=== PATIENT | male | born 1955 | race Caucasian/White ===

== ENCOUNTER 2023-11-07 19:24 | Emergency (ER) | payer OTHER, SELFPAY ==
[2023-11-07] VITALS (24 sets, daily range): BP systolic 138–179; BP diastolic 72–86; PULSE 63–90; RESP 12–62; TEMP 37.2; O2SAT 88–97; BMI 31.2
[2023-11-07 20:09] LABS: Adenovirus NOT DETECTED (NOT DETECTE); Bordetella parapertussis NOT DETECTED (NOT DETECTE); Coronavirus 229E NOT DETECTED (NOT DETECTE); Coronavirus HKU1 NOT DETECTED (NOT DETECTE); Coronavirus NL63 NOT DETECTED (NOT DETECTE); Coronavirus OC43 NOT DETECTED (NOT DETECTE); Human Metapneumovirus NOT DETECTED (NOT DETECTE); Human Rhinovirus/Enterovirus NOT DETECTED (NOT DETECTE); Influenza A NOT DETECTED (NOT DETECTE); Influenza B NOT DETECTED (NOT DETECTE); Mycoplasma pneumoniae NOT DETECTED (NOT DETECTE); Parainfluenza Virus 1 NOT DETECTED (NOT DETECTE); Parainfluenza Virus 2 NOT DETECTED (NOT DETECTE); Parainfluenza Virus 3 NOT DETECTED (NOT DETECTE); Parainfluenza Virus 4 NOT DETECTED (NOT DETECTE); Respiratory Syncytial Virus NOT DETECTED (NOT DETECTE); SARS-CoV-2 NOT DETECTED (NOT DETECTE)
--- NOTE | 2023-11-07 20:23 | XR_ITS ---
[address] [address] Patient Name: VLADISLAV SEPULVEDA MRN: [id number] date: 1955 Sex: M Assigned Patient Location: ER Current Patient Location: ER Accession/Order Number: [id number] Exam Date: 11/07/2023 20:25 Report Date: 11/07/2023 20:49 At the request of: JOSEPH MEDINA Procedure: XR chest 2V EXAM: XR chest 2V HISTORY: Cough portable chest 07/27/2022 COMPARISON: None. TECHNIQUE: PA and lateral chest x-ray FINDINGS: IMPRESSION: Patchy infiltrate within the posterior aspect of the presumed right lower lobe. This is best visualized on the lateral view. No pneumothorax or pleural effusion. The heart is not enlarged. No visualized acute osseous abnormality Electronically authenticated by: JIMMIE CONCEPCION Date: 11/07/2023 20:49
--- NOTE | 2023-11-07 20:28 | ED_ITS ---
HPI - General Adult General Chief complaint: Shortness of Breath/Dyspnea Stated complaint: UPPER RESP Time Seen by Provider: 11/07/23 20:18 Source: patient Mode of arrival: walk-in Limitations: no limitations History of Present Illness HPI narrative: 60-year-old male to the emergency for a chief complaint shortness of breath. Patient reports that he has cough, nasal congestion for the last seven days. He reports he does not sleep in three nights due to coughing and shortness of breath. He has been using albuterol at home every 2-4 hours which improves his symptoms significantly. Cough is productive of some white sputum. dENIES ANY FEVER, SWEATS, CHILLS. dENIES ANY CHEST PAIN. dENIES ANY LEG SWELLING. He reports a [id number] history of smoking. Related Data Previous Rx's Medication Instructions Recorded albuterol sulfate 90 mcg/actuation 2 inh inhalation Q4H PRN shortness 11/07/23 aerosol inhaler of breath or wheezing #6.7 grams amoxicillin 875 mg-potassium 1 tab PO Q12H #14 tabs 11/07/23 clavulanate 125 mg tablet doxycycline monohydrate 100 mg 100 mg PO BID 7 days #14 caps 11/07/23 capsule prednisone 20 mg tablet 60 mg (3 x 20 mg) PO DAILY 5 days 11/07/23 #15 tabs Allergies Allergy/AdvReac Type Severity Reaction Status Date / Time naproxen [From Naprosyn] Allergy Intermediate Verified 11/07/23 19:32 Review of Systems ROS Status of ROS 10 or more systems reviewed and unremark able except as noted in history and below Exam Narrative Exam Narrative: VITALS: I have reviewed the triage vital signs.? GENERAL: Well developed, well appearing adult in no acute distress.?? NEURO: Alert and oriented. Moves all extremities. Face is symmetric and expressive.? EYES: PERRL. No scleral icterus or conjunctival injection. No discharge.? HENT: Normocephalic, atraumatic. Hearing is grossly intact. Nares grossly patent and without discharge. Mucous membranes moist.? NECK: No JVD. Patient moves neck without restriction.? CARDIO: Rhythm regular. Normal rate. No murmur, rub, or gallop. Pulses equal bilaterally in the upper and lower extremity. No lower extremity edema.? PULM: Lungs clear to auscultation in all thomas. No wheezes, rales, or rhonchi. No conversational dyspnea. No splinting, stridor, or accessory muscle use.?? GI/: Abdomen is soft and non-tender. Normoactive bowel sounds.? EXTREMITIES: Symmetric muscle bulk. No joint swelling. No clubbing, cyanosis, or deformity.? SKIN: Warm and dry. Normal turgor. No rash or lesions appreciated.? PSYCH: Mood, affect, and interaction is appropriate to the setting. Constitutional Vital Signs, click to edit/add: Last Vital Signs Temp 98.9 F 11/07/23 19:27 Pulse 81 11/07/23 23:30 Resp 20 11/07/23 22:20 BP 157/84 H 11/07/23 23:31 Pulse Ox 95 11/07/23 23:30 O2 Del Method Room Air 11/07/23 19:27 Course Vital Signs Vital signs: Vital Signs Temperature 98.9 F 11/07/23 19:27 Pulse Rate 90 11/07/23 19:27 Respiratory Rate 24 11/07/23 19:27 Blood Pressure 164/79 H 11/07/23 19:27 Pulse Oximetry 94 L 11/07/23 19:27 Oxygen Delivery Method Room Air 11/07/23 19:27 Temperature 98.9 F 11/07/23 19:27 Pulse Rate 81 11/07/23 23:30 Respiratory Rate 20 11/07/23 22:20 Blood Pressure 157/84 H 11/07/23 23:31 Pulse Oximetry 95 11/07/23 23:30 Oxygen Delivery Method Room Air 11/07/23 19:27 Medical Decision Making [facility] Narrative Medical decision making narrative: 60-year-old male to the emergency Department chief complaint shortness of breath. Vital stable, patient is afebrile. Rhonchi that clear with coughing. No increased work of breathing. He reports a history of chronic obstructive pulmonary disease. Basic labs are ordered. We'll obtain chest x-ray. DuoNeb and steroids ordered. Patient agrees this plan. CXR shows Infiltrate with clinically correlates with pneumonia. Laboratory reviewed and noted. He does have an elevated troponin level. I do see he has had this in the past. Repeat troponin was obtained and decreased slightly. He has no active chest discomfort or ACS equivalent symptoms. His prior shortness of breath resolved with DuoNeb treatment. EKG without evidence of ischemia. I discussed findings with the patient. Given his elevated troponin level I did recommend admission. Patient reports that he has a truck that he needs to return tomorrow morning will be charged for her dollars if he does not do so. He would like to leave against medical advice. I again discussed the risks including , disability, , etc. with the patient he would still like to leave. He is given a prescription for antibiotics given his likely chronic obstructive pulmonary disease was covered with Augmentin and doxycycline. He is given albuterol. He was given a steroid. Return precautions. He was instructed to return as soon as feasible to continue his care. He was given outpatient follow- up as well. Patient Left against medical advice. Medical Records Medical records reviewed: Yes I reviewed the patient's medical records Lab Data Lab results reviewed: Yes I reviewed the patient's lab results Labs: Lab Results 11/07/23 11/07/23 11/07/23 Range/Units 19:50 20:36 22:06 WBC 12.5 H (4.0-11.0) 10^3/uL RBC 3.90 L (4.70-6.10) 10^6/uL Hgb 12.0 L (14.0-18.0) g/dL Hct 36.6 L (42.0-54.0) % MCV 93.8 (80.0-94.0) fL MCH 30.8 (25.9-34.0) pg MCHC 32.8 (29.9-35.2) g/dL RDW 14.1 (11.0-15.0) % Plt Count 339 (150-450) 10^3/uL MPV 10.5 (9.5-13.5) fL Neut % (Auto) 65.0 (43.0-75.0) % Lymph % (Auto) 22.1 (20.5-60.0) % [place] % (Auto) 9.8 (1.7-12.0) % Eos % (Auto) 1.8 (0.9-7.0) % Baso % (Auto) 0.7 (0.2-2.0) % Neut # (Auto) 8.1 H (1.4-6.5) 10^3/uL Lymph # (Auto) 2.8 (1.2-3.8) 10^3/uL [place] # (Auto) 1.2 H (0.3-0.8) 10^3/uL Eos # (Auto) 0.2 (0.0-0.7) 10^3/uL Baso # (Auto) 0.1 (0.0-0.1) 10^3/uL Abs Immat Gran (auto) 0.07 H (0.00-0.03) 10^3/uL Imm/Tot Granulo (auto) 0.6 H (0.0-0.5) % Sodium 138 (136-145) mmol/L Potassium 3.9 (3.5-5.1) mmol/L Chloride 104 (98-107) mmol/L Carbon Dioxide 27.7 (21.0-32.0) mmol/L Anion Gap 10.2 BUN 17.0 (7.0-18.0) mg/dL Creatinine 1.12 (0.70-1.30) mg/dL Est GFR ( Amer) >60 (>=60) Est GFR (Non-Af Amer) >60 (>=60) BUN/Creatinine Ratio 15.2 Glucose 146 H (74-106) mg/dL Calcium 9.5 (8.5-10.1) mg/dL Troponin I High Sens 160.1 H* 152.2 H* (4.0-76.1) pg/mL NT-Pro-B Natriuret Pep 504.0 (<=900.0) pg/mL Adenovirus (PCR) Not detected (NOT DETECTE) C. pneumoniae DNA (PCR) Not detected (NOT DETECTE) Coronavirus Type OC43 Not detected (NOT DETECTE) Coronavirus Type HKU1 Not detected (NOT DETECTE) Coronavirus Type 229E Not detected (NOT DETECTE) Coronavirus Type NL63 Not detected (NOT DETECTE) Human Metapneumovir PCR Not detected (NOT DETECTE) M. pneumoniae (PCR) Not detected (NOT DETECTE) Parainfluenza PCR Not detected (NOT DETECTE) Parainfluenza 2 (PCR) Not detected (NOT DETECTE) Parainfluenza 3 (PCR) Not detected (NOT DETECTE) Parainfluenza 4 (PCR) Not detected (NOT DETECTE) RSV (RT-PCR) Not detected (NOT DETECTE) Entero/Rhino (PCR) Not detected (NOT DETECTE) SARS-CoV-2 (PCR) Not detected (NOT DETECTE) Bordetella pertussis (PCR) Not detected (NOT DETECTE) B parapertussis DNA PCR Not detected (NOT DETECTE) Influenza Type A (PCR) Not detected (NOT DETECTE) Influenza Type B (PCR) Not detected (NOT DETECTE) ECG Data Attestation: I personally reviewed and interpreted this ECG as follows: (Sinus rhythm. No ischemic pattern. Normal QTC.) Discharge Plan Discharge Chief Complaint: Shortness of Breath/Dyspnea Clinical Impression: Community acquired pneumonia, Elevated troponin Patient Disposition: Left Against Medical Advice Time of Disposition Decision: 23:09 Condition: Fair Mode of Transportation: Private Vehicle Prescriptions / Home Meds: New prednisone 20 mg tablet 60 mg PO DAILY 5 Days Qty: 15 0RF doxycycline monohydrate 100 mg capsule 100 mg PO BID 7 Days Qty: 14 0RF amoxicillin-pot clavulanate 875-125 mg tablet 1 tab PO Q12H Qty: 14 0RF albuterol sulfate 90 mcg/actuation HFA aerosol inhaler 2 inh inhalation Q4H PRN (Reason: shortness of breath or wheezing) Qty: 6.7 0RF Print Language: Emirati Instructions: Community Acquired Pneumonia (ED) Additional Instructions: He may return to [facility] at any time to continue your care. You need evaluation for her elevated troponin levels with cardiology. Return to the emergency department as soon as possible to continue your care. Stand Alone Forms: Portal Instructions Referrals: Trent Brandt MD [Primary Care Provider] - 1 week Ziyad Tripp MD [Physician] - As soon as possible
--- NOTE | 2023-11-07 20:33 | ECG_ITS ---
The [facility] Test Date: 2023-11-07 Pat Name: VLADISLAV SEPULVEDA Department: Room: - Gender: Male Site Leader: : 1955 Requested By: MERCY AMBRIZ Order Number: [id number] Reading MD: MERCY AMBRIZ Measurements Intervals [place] Rate: 85 P: 60 [place]: 150 QRS: -17 QRSD: 86 T: 90 QT: 356 QTc: 399 Interpretive Statements 1100 Sinus rhythm 1470 with occasional supraventricular premature complexes 83354 Cannot rule out inferior myocardial infarction with posterior extension, probably old 8101 Low QRS voltage in limb leads 9150 abnormal ECG No previous ECG available for comparison Electronically Signed On 11-08-2023 5:34:13 EST by MERCY AMBRIZ
[2023-11-07 20:43] LABS: Basophils Absolute Auto 0.1 10^3/uL (0.0-0.1); Basophils Percent Auto 0.7 % (0.2-2.0); Eosinophils Absolute Auto 0.2 10^3/uL (0.0-0.7); Eosinophils Percent Auto 1.8 % (0.9-7.0); Hematocrit 36.6 % (42.0-54.0); Immature Granulocytes Abs Auto 0.07 10^3/uL (0.00-0.03); Immature Granulocytes Pct Auto 0.6 % (0.0-0.5); Lymphocytes Absolute Auto 2.8 10^3/uL (1.2-3.8); Lymphocytes Percent Auto 22.1 % (20.5-60.0); Mean Corpuscular HGB Conc 32.8 g/dL (29.9-35.2); Mean Corpuscular Hemoglobin 30.8 pg (25.9-34.0); Mean Corpuscular Volume 93.8 fL (80.0-94.0); Mean Platelet Volume 10.5 fL (9.5-13.5); Monocytes Absolute Auto 1.2 10^3/uL (0.3-0.8); Monocytes Percent Auto 9.8 % (1.7-12.0); Neutrophils Absolute Auto 8.1 10^3/uL (1.4-6.5); Platelet Count 339 10^3/uL (150-450); Red Cell Distribution Width 14.1 % (11.0-15.0); White Blood Count 12.5 10^3/uL (4.0-11.0)
[2023-11-07] MEDS: METHYLPREDNISOLONE SOD SUCC PF 125 MG/2 ML VIAL IVP (20:50)
[2023-11-07 21:06] LABS: Anion Gap 10.2; BUN Creatinine Ratio 15.2; Calcium 9.5 mg/dL (8.5-10.1); Carbon Dioxide 27.7 mmol/L (21.0-32.0); Chloride 104 mmol/L (98-107); Estimated GFR (African America >60 (>=60); Estimated GFR (Non-African Ame >60 (>=60); Glucose 146 mg/dL (74-106); Potassium 3.9 mmol/L (3.5-5.1); Sodium 138 mmol/L (136-145)
[2023-11-07 21:08] LABS: Troponin I High Sensitivity 160.1 pg/mL (4.0-76.1)
[2023-11-07] MEDS: IPRATROPIUM/ALBUTEROL SULFATE 3 ML AMPUL.NEB IH (21:15)
[2023-11-07 22:32] LABS: Troponin I High Sensitivity 152.2 pg/mL (4.0-76.1)
[2023-11-07] MEDS: CEFTRIAXONE 1,000 MG in 0.9 % SODIUM CHLORIDE 50 ML 100 MG IV (23:35)
[2023-11-07] MEDS: AZITHROMYCIN 500 MG in 0.9 % SODIUM CHLORIDE 250 ML 250 MG IV (23:36)
== END 2023-11-08 01:13 | disposition left against medical advice (07) ==
PROVIDERS: Emergency Provider Student in an Organized Health Care Education/Training Program; PCP Family Medicine
DX: J18.9 Pneumonia, unspecified organism (principal); R79.89 Other specified abnormal findings of blood chemistry; J44.0 Chronic obstructive pulmonary disease with (acute) lower respiratory infection; F17.210 Nicotine dependence, cigarettes, uncomplicated; Z20.822 Contact with and (suspected) exposure to COVID-19; Z53.29 Procedure and treatment not carried out because of patient's decision for other reasons
CPT/HCPCS: 0202U; 36415; 71046; 80048; 83880; 84484; 85025; 93005; 94640; 96365; 96368; 96375; 99285; J0456; J2930

== ENCOUNTER 2024-01-19 15:03 | Emergency (ER) | payer OTHER, SELFPAY ==
[2024-01-19 15:09] VITALS: BP 142/84; PULSE 64; RESP 20; TEMP 36.8; O2SAT 97; BMI 31.2
--- NOTE | 2024-01-19 15:26 | XR_ITS ---
The [address] [address] Patient Name: VLADISLAV SEPULVEDA MRN: [id number] date: 1955 Sex: M Assigned Patient Location: ER Current Patient Location: ER Accession/Order Number: [id number] Exam Date: 01/19/2024 16:10 Report Date: 01/19/2024 17:07 At the request of: ANA GARCIA Procedure: XR hip LT 2V w/ pelvis EXAM: XR hip LT 2V w/ pelvis HISTORY: Fall COMPARISON: None. TECHNIQUE: 3 views of the left hip FINDINGS: No acute fracture is seen. Joint alignment is normal. Joint spaces are preserved. XR/XR hip LT 2V w/ pelvis IMPRESSION: No acute fracture or malalignment. Electronically authenticated by: MARCK DAHL Date: 01/19/2024 17:07
--- NOTE | 2024-01-19 15:26 | XR_ITS ---
The [address] [address] Patient Name: VLADISLAV SEPULVEDA MRN: [id number] date: 1955 Sex: M Assigned Patient Location: ER Current Patient Location: Accession/Order Number: [id number] Exam Date: 01/19/2024 16:10 Report Date: 01/19/2024 17:08 At the request of: ANA GARCIA Procedure: XR hand LT min 3V CLINICAL HISTORY: Fall.Fell off the truck 3 days ago, pain. EXAMINATION: Left hand: 01/19/2024. COMPARISON: None. FINDINGS: 3 views are provided which demonstrate there is narrowing of the radiocarpal, carpocarpal, carpometacarpal joint particularly the first digit, metacarpophalangeal joints, as well as interphalangeal joints with some calcifications along the cartilage between the radiocarpal joint, as well as along the base of the proximal phalanx of third digit. No erosive changes are seen. No definite fractures or dislocations are seen. No significant soft tissue swelling, calcifications or radiopaque foreign bodies. XR/XR hand LT min 3V IMPRESSION: 1. No acute fractures or dislocations. 2. Degenerative changes as described above. Electronically authenticated by: ROCK [place] Date: 01/19/2024 17:08
--- NOTE | 2024-01-19 15:26 | XR_ITS ---
The [address] [address] Patient Name: VLADISLAV SEPULVEDA MRN: [id number] date: 1955 Sex: M Assigned Patient Location: ER Current Patient Location: Accession/Order Number: [id number] Exam Date: 01/19/2024 16:10 Report Date: 01/19/2024 17:08 At the request of: ANA GARCIA Procedure: XR chest 2V CLINICAL HISTORY: Cough. Fell off a truck 3 days ago. EXAMINATION: PA and lateral chest: 01/19/2024. COMPARISON: PA and lateral chest 11/07/2024. FINDINGS: There are degenerative changes of thoracic spine of moderate degree as well as there are degenerative changes of the left shoulder joint. The visualized soft tissues appear intact. The heart size seems normal. The aorta structures, atherosclerotic. The trachea is midline. There are no discrete infiltrates, pleural effusions, pulmonary edema or pneumothorax. XR/XR chest 2V IMPRESSION: No acute cardiopulmonary disease. Electronically authenticated by: [place] Date: 01/19/2024 17:08
--- NOTE | 2024-01-19 15:26 | XR_ITS ---
The [address] [address] Patient Name: VLADISLAV SEPULVEDA MRN: [id number] date: 1955 Sex: M Assigned Patient Location: ER Current Patient Location: ER Accession/Order Number: [id number] Exam Date: 01/19/2024 16:10 Report Date: 01/19/2024 17:10 At the request of: ANA GARCIA Procedure: XR shoulder RT min 2V CLINICAL HISTORY: Fall. Fell off a truck 3 days ago. EXAMINATION: Right shoulder: 01/19/2024. COMPARISON: None. FINDINGS: Three views are provided which demonstrate normally aligned glenohumeral joint without definite fractures or dislocations. There is some narrowing of the AC joint. The visualized right clavicle, scapula, visualized right ribs appear intact. Surrounding soft tissues are normal. There are no abnormal calcifications or radiopaque foreign bodies. XR/XR shoulder RT min 2V IMPRESSION: No acute fractures or dislocations or significant degenerative changes. Electronically authenticated by: [place] Date: 01/19/2024 17:10
--- NOTE | 2024-01-19 15:29 | ED.GENADUL1 ---
Documented by User: MAEVE Escamilla 01/19/24 18:25 HPI - General Adult General Chief complaint: Fall Stated complaint: FALL Time Seen by Provider: 01/19/24 15:13 Source: patient Mode of arrival: walk-in Limitations: no limitations History of Present Illness HPI narrative: Patient is a 68-year-old male who presents to the emergency department for the evaluation of multiple complaints. He states 1 week ago he fell backward out of the lift of a truck bed. He states he fell while moving. He is on aspirin and Plavix. He states he does not know if he hit his head or got knocked out. He complains of persistent pain to the right posterior shoulder, left hip, left hand. He ambulated into the emergency department. He has not been seen by any providers since falling. He states today they came to the ER because they have finished moving. Patient further complains of persistent cough over the last 2 months. He was seen in this emergency department in October and diagnosed with community-acquired pneumonia, COPD exacerbation and elevated troponin. He signed out AGAINST MEDICAL ADVICE because he stated he could not stay in the hospital. He states at my time of initial interview, he is able to stay in the hospital if we need him to. He continues to have a cough worse at nighttime. He does not wear home oxygen. He has had no new fevers. He states the cough is painful but he has not had any persistent chest pain. He finished steroids and antibiotics several weeks ago and feels he has not had any improvement. Related Data Home Medications Medication Instructions Recorded Confirmed clopidogrel 75 mg tablet 75 mg PO DAILY 01/19/24 01/19/24 Previous Rx's Medication Instructions Recorded albuterol sulfate 90 mcg/actuation 2 inh inhalation Q4H PRN shortness 11/07/23 aerosol inhaler of breath or wheezing #6.7 grams amoxicillin 875 mg-potassium 1 tab PO Q12H #14 tabs 11/07/23 clavulanate 125 mg tablet doxycycline monohydrate 100 mg 100 mg PO BID 7 days #14 caps 11/07/23 capsule prednisone 20 mg tablet 60 mg (3 x 20 mg) PO DAILY 5 days 11/07/23 #15 tabs ketoconazole 2 % topical cream 1 applic topical BID #30 grams 01/19/24 methocarbamol 750 mg tablet 750 mg PO TID PRN pain #20 tabs 01/19/24 pseudoephedrine 60 mg-DM 15 1 tab PO Q6H PRN cough #20 tabs 01/19/24 mg-guaifenesin 400 mg tablet (Capmist DM) Allergies Allergy/AdvReac Type Severity Reaction Status Date / Time naproxen [From Naprosyn] Allergy Intermediate Verified 11/07/23 19:32 Review of Systems ROS Constitutional Denies: fever or chills Ears, nose, mouth, and throat Denies: throat pain or nasal congestion Cardiovascular Denies: chest pain Respiratory Reports: shortness of breath and cough Gastrointestinal Denies: nausea or vomiting Musculoskeletal Reports: back pain and extremity pain; Denies: neck pain Integumentary/Breast Denies: rash Neurological Denies: headache Hematologic/Lymphatic Denies: easy bruising or easy bleeding PFSH PFS Social History Smoking status: Heavy tobacco smoker Exam Narrative Exam Narrative: Gen.: Awake, alert, in no distress Head: Normocephalic, atraumatic ENT: Moist mucous membranes; No bony tenderness of the C-spine Respiratory: No respiratory distress, lungs clear bilaterally Cardio: Regular rate and rhythm Back: No bony tenderness of the T-spine or L-spine in the midline. No abrasions or lacerations noted of the posterior Chest or low back Extremities: Moves extremities equally, no injuries noted; Tenderness over the first metacarpal of the left hand, no obvious deformity noted. Diffuse tenderness of the left lateral hip with no internal or external rotation. Diffuse posterior tenderness of the right shoulder. No obvious deformity or evidence of dislocation Psych: Normal mood and affect Neuro: No focal neuro deficit Skin: Warm, dry, intact Constitutional Vital Signs, click to edit/add: Last Vital Signs Temp 98.2 F 01/19/24 15:09 Pulse 67 01/19/24 18:30 Resp 16 01/19/24 18:30 BP 150/93 H 01/19/24 18:30 Pulse Ox 96 01/19/24 18:30 O2 Del Method Room Air 01/19/24 18:30 Course Vital Signs Vital signs: Vital Signs Temperature 98.2 F 01/19/24 15:09 Pulse Rate 64 01/19/24 15:09 Respiratory Rate 20 01/19/24 15:09 Blood Pressure 142/84 H 01/19/24 15:09 Pulse Oximetry 97 01/19/24 15:09 Oxygen Delivery Method Room Air 01/19/24 15:09 Temperature 98.2 F 01/19/24 15:09 Pulse Rate 67 01/19/24 18:30 Respiratory Rate 16 01/19/24 18:30 Blood Pressure 150/93 H 01/19/24 18:30 Pulse Oximetry 96 01/19/24 18:30 Oxygen Delivery Method Room Air 01/19/24 18:30 Medical Decision Making MDM Narrative Medical decision making narrative: Patient with no EKG changes in the ER, he has a chronically elevated troponin which is elevated today although repeat troponin has decreased slightly, he has no active severe chest pain in the ER. He complains of continued cough at nighttime for over 2 months. Chest x-ray is normal. Patient has unremarkable CT of the brain, C-spine as well as x-rays of the left hand, right shoulder, chest, pelvis and left hip. I discussed the case with Dr. Brandt, he recommended if the BNP is normal, the patient can be discharged and follow-up in the office. This lab value was normal and the patient maintained stable vital signs in the ER. He is discharged home with a cough medication and muscle relaxant to follow-up with Dr. Brandt's office. Return to the ER if symptoms change or worsen Patient was reevaluated by Dr. Ballard prior to discharge. Patient was found to have skin rash consistent with ringworm on multiple parts of his body. Ketoconazole given for home for ringworm as well. Medical Records Medical records reviewed: Yes I reviewed the patient's medical records Lab Data Lab results reviewed: Yes I reviewed the patient's lab results Labs: Lab Results 01/19/24 01/19/24 Range/Units 15:35 16:35 WBC 10.4 (4.0-11.0) 10^3/uL RBC 4.29 L (4.70-6.10) 10^6/uL Hgb 13.0 L (14.0-18.0) g/dL Hct 40.0 L (42.0-54.0) % MCV 93.2 (80.0-94.0) fL MCH 30.3 (25.9-34.0) pg MCHC 32.5 (29.9-35.2) g/dL RDW 16.4 H (11.0-15.0) % Plt Count 306 (150-450) 10^3/uL MPV 10.5 (9.5-13.5) fL Neut % (Auto) 68.5 (43.0-75.0) % Lymph % (Auto) 20.6 (20.5-60.0) % Roosevelt % (Auto) 7.6 (1.7-12.0) % Eos % (Auto) 2.2 (0.9-7.0) % Baso % (Auto) 0.8 (0.2-2.0) % Neut # (Auto) 7.1 H (1.4-6.5) 10^3/uL Lymph # (Auto) 2.1 (1.2-3.8) 10^3/uL Roosevelt # (Auto) 0.8 (0.3-0.8) 10^3/uL Eos # (Auto) 0.2 (0.0-0.7) 10^3/uL Baso # (Auto) 0.1 (0.0-0.1) 10^3/uL Abs Immat Gran (auto) 0.03 (0.00-0.03) 10^3/uL Imm/Tot Granulo (auto) 0.3 (0.0-0.5) % Sodium 142 (136-145) mmol/L Potassium 3.8 (3.5-5.1) mmol/L Chloride 104 (98-107) mmol/L Carbon Dioxide 27.5 (21.0-32.0) mmol/L Anion Gap 14.3 BUN 16.0 (7.0-18.0) mg/dL Creatinine 1.33 H (0.70-1.30) mg/dL Est GFR ( Amer) >60 (>=60) Est GFR (Non-Af Amer) 53 L (>=60) BUN/Creatinine Ratio 12.0 Glucose 217 H (74-106) mg/dL Calcium 10.2 H (8.5-10.1) mg/dL Total Bilirubin 0.8 (0.2-1.0) mg/dL AST 21 (15-37) U/L ALT 27 (16-63) U/L Alkaline Phosphatase 94 (46-116) U/L Troponin I High Sens 225.2 H* 224.0 H* (4.0-76.1) pg/mL NT-Pro-B Natriuret Pep 247.0 (<=900.0) pg/mL Total Protein 7.7 (6.4-8.2) g/dL Albumin 3.5 (3.4-5.0) g/dL Globulin 4.2 g/dL Albumin/Globulin Ratio 0.[address] scan - head: Attestation: I have reviewed the pertinent imaging results. Radiologist's impression: ITS Impressions Chest X-Ray 01/19/24 15:26 IMPRESSION: No acute cardiopulmonary disease. Electronically authenticated by: [place] Date: 01/19/2024 17:08 Hand X-Ray 01/19/24 15:26 IMPRESSION: 1. No acute fractures or dislocations. 2. Degenerative changes as described above. Electronically authenticated by: [place] Date: 01/19/2024 17:08 Hip/Pelvis X-Ray 01/19/24 15:26 IMPRESSION: No acute fracture or malalignment. Electronically authenticated by: MARCK DAHL Date: 01/19/2024 17:07 Shoulder X-Ray 01/19/24 15:26 IMPRESSION: No acute fractures or dislocations or significant degenerative changes. Electronically authenticated by: [place] Date: 01/19/2024 17:[address] 01/19/24 16:40 IMPRESSION: No acute intracranial process is identified. No acute fracture. Frontal thickening likely due to prior subgaleal hemorrhage. Electronically authenticated by: DENISE MENSAH Date: 01/19/2024 17:[address] 01/19/24 16:40 IMPRESSION: No acute intracranial process is identified. No acute fracture. Frontal thickening likely due to prior subgaleal hemorrhage. Electronically authenticated by: DENISE MENSAH Date: 01/19/2024 17:14 Discharge Plan Discharge Chief Complaint: Fall Clinical Impression: Cough, Contusion of multiple sites, Fall, Ringworm Patient Disposition: Home, Self-Care Time of Disposition Decision: 18:19 Condition: Good Prescriptions / Home Meds: New methocarbamol 750 mg tablet 750 mg PO TID PRN (Reason: pain) Qty: 20 0RF Capmist DM 60-15-400 mg tablet 1 tab PO Q6H PRN (Reason: cough) Qty: 20 0RF ketoconazole 2 % cream 1 applic topical BID Qty: 30 0RF No Action prednisone 20 mg tablet 60 mg PO DAILY 5 Days Qty: 15 0RF doxycycline monohydrate 100 mg capsule 100 mg PO BID 7 Days Qty: 14 0RF amoxicillin-pot clavulanate 875-125 mg tablet 1 tab PO Q12H Qty: 14 0RF albuterol sulfate 90 mcg/actuation HFA aerosol inhaler 2 inh inhalation Q4H PRN (Reason: shortness of breath or wheezing) Qty: 6.7 0RF clopidogrel 75 mg tablet 75 mg PO DAILY Instructions: Fall Prevention (ED), Acute Cough (ED) Additional Instructions: Call Dr. Brandt's office tomorrow for appointment Stand Alone Forms: Portal Instructions Referrals: Trent Brandt MD [Primary Care Provider] - 1 week Discharge Date/Time: 01/19/24 18:40 Documented by User: Cristian Ballard MD 01/19/24 20:43 HPI - General Adult General Chief complaint: Fall Stated complaint: FALL Time Seen by Provider: 01/19/24 15:13 Related Data Home Medications Medication Instructions Recorded Confirmed clopidogrel 75 mg tablet 75 mg PO DAILY 01/19/24 01/19/24 Previous Rx's Medication Instructions Recorded albuterol sulfate 90 mcg/actuation 2 inh inhalation Q4H PRN shortness 11/07/23 aerosol inhaler of breath or wheezing #6.7 grams amoxicillin 875 mg-potassium 1 tab PO Q12H #14 tabs 11/07/23 clavulanate 125 mg tablet doxycycline monohydrate 100 mg 100 mg PO BID 7 days #14 caps 11/07/23 capsule prednisone 20 mg tablet 60 mg (3 x 20 mg) PO DAILY 5 days 11/07/23 #15 tabs ketoconazole 2 % topical cream 1 applic topical BID #30 grams 02/28/24 methocarbamol 750 mg tablet 750 mg PO TID PRN pain #20 tabs 01/19/24 pseudoephedrine 60 mg-DM 15 1 tab PO Q6H PRN cough #20 tabs 01/19/24 mg-guaifenesin 400 mg tablet (Capmist DM) Allergies Allergy/AdvReac Type Severity Reaction Status Date / Time naproxen [From Naprosyn] Allergy Intermediate Verified 11/07/23 19:32 PFSH PFSH Social History Smoking status: Heavy tobacco smoker Exam Constitutional Vital Signs, click to edit/add: Last Vital Signs Temp 98.2 F 01/19/24 15:09 Pulse 67 01/19/24 18:30 Resp 16 01/19/24 18:30 BP 150/93 H 01/19/24 18:30 Pulse Ox 96 01/19/24 18:30 O2 Del Method Room Air 01/19/24 18:30 Course Vital Signs Vital signs: Vital Signs Temperature 98.2 F 01/19/24 15:09 Pulse Rate 64 01/19/24 15:09 Respiratory Rate 20 01/19/24 15:09 Blood Pressure 142/84 H 01/19/24 15:09 Pulse Oximetry 97 01/19/24 15:09 Oxygen Delivery Method Room Air 01/19/24 15:09 Temperature 98.2 F 01/19/24 15:09 Pulse Rate 67 01/19/24 18:30 Respiratory Rate 16 01/19/24 18:30 Blood Pressure 150/93 H 01/19/24 18:30 Pulse Oximetry 96 01/19/24 18:30 Oxygen Delivery Method Room Air 01/19/24 18:30 Medical Decision Making [facility] Narrative Medical decision making narrative: Patient with no EKG changes in the ER, he has a chronically elevated troponin which is elevated today although repeat troponin has decreased slightly, he has no active severe chest pain in the ER. He complains of continued cough at nighttime for over 2 months. Chest x-ray is normal. Patient has unremarkable CT of the brain, C-spine as well as x-rays of the left hand, right shoulder, chest, pelvis and left hip. I discussed the case with Dr. Brandt, he recommended if the BNP is normal, the patient can be discharged and follow-up in the office. This lab value was normal and the patient maintained stable vital signs in the ER. He is discharged home with a cough medication and muscle relaxant to follow-up with Dr. Brandt's office. Return to the ER if symptoms change or worsen Patient was reevaluated by Dr. Ballard prior to discharge. Patient was found to have skin rash consistent with ringworm on multiple parts of his body. Ketoconazole given for home for ringworm as well. I, Dr Ballard, have reviewed the above progress note and course of action in the ER; agree with the above. I have personally seen and evaluated this patient, gone over history and physical, and discussed disposition and treatment plan with the patient. Lab Data Labs: Lab Results 01/19/24 01/19/24 Range/Units 15:35 16:35 WBC 10.4 (4.0-11.0) 10^3/uL RBC 4.29 L (4.70-6.10) 10^6/uL Hgb 13.0 L (14.0-18.0) g/dL Hct 40.0 L (42.0-54.0) % MCV 93.2 (80.0-94.0) fL MCH 30.3 (25.9-34.0) pg MCHC 32.5 (29.9-35.2) g/dL RDW 16.4 H (11.0-15.0) % Plt Count 306 (150-450) 10^3/uL MPV 10.5 (9.5-13.5) fL Neut % (Auto) 68.5 (43.0-75.0) % Lymph % (Auto) 20.6 (20.5-60.0) % Roosevelt % (Auto) 7.6 (1.7-12.0) % Eos % (Auto) 2.2 (0.9-7.0) % Baso % (Auto) 0.8 (0.2-2.0) % Neut # (Auto) 7.1 H (1.4-6.5) 10^3/uL Lymph # (Auto) 2.1 (1.2-3.8) 10^3/uL Roosevelt # (Auto) 0.8 (0.3-0.8) 10^3/uL Eos # (Auto) 0.2 (0.0-0.7) 10^3/uL Baso # (Auto) 0.1 (0.0-0.1) 10^3/uL Abs Immat Gran (auto) 0.03 (0.00-0.03) 10^3/uL Imm/Tot Granulo (auto) 0.3 (0.0-0.5) % Sodium 142 (136-145) mmol/L Potassium 3.8 (3.5-5.1) mmol/L Chloride 104 (98-107) mmol/L Carbon Dioxide 27.5 (21.0-32.0) mmol/L Anion Gap 14.3 BUN 16.0 (7.0-18.0) mg/dL Creatinine 1.33 H (0.70-1.30) mg/dL Est GFR ( Amer) >60 (>=60) Est GFR (Non-Af Amer) 53 L (>=60) BUN/Creatinine Ratio 12.0 Glucose 217 H (74-106) mg/dL Calcium 10.2 H (8.5-10.1) mg/dL Total Bilirubin 0.8 (0.2-1.0) mg/dL AST 21 (15-37) U/L ALT 27 (16-63) U/L Alkaline Phosphatase 94 (46-116) U/L Troponin I High Sens 225.2 H* 224.0 H* (4.0-76.1) pg/mL NT-Pro-B Natriuret Pep 247.0 (<=900.0) pg/mL Total Protein 7.7 (6.4-8.2) g/dL Albumin 3.5 (3.4-5.0) g/dL Globulin 4.2 g/dL Albumin/Globulin Ratio 0.[address] scan - head: Radiologist's impression: ITS Impressions Chest X-Ray 01/19/24 15:26 IMPRESSION: No acute cardiopulmonary disease. Electronically authenticated by: [place] Date: 01/19/2024 17:08 Hand X-Ray 01/19/24 15:26 IMPRESSION: 1. No acute fractures or dislocations. 2. Degenerative changes as described above. Electronically authenticated by: [place] Date: 01/19/2024 17:08 Hip/Pelvis X-Ray 01/19/24 15:26 IMPRESSION: No acute fracture or malalignment. Electronically authenticated by: MARCK DAHL Date: 01/19/2024 17:07 Shoulder X-Ray 01/19/24 15:26 IMPRESSION: No acute fractures or dislocations or significant degenerative changes. Electronically authenticated by: [place] Date: 01/19/2024 17:[address] 01/19/24 16:40 IMPRESSION: No acute intracranial process is identified. No acute fracture. Frontal thickening likely due to prior subgaleal hemorrhage. Electronically authenticated by: DENISE MENSAH Date: 01/19/2024 17:[address] 01/19/24 16:40 IMPRESSION: No acute intracranial process is identified. No acute fracture. Frontal thickening likely due to prior subgaleal hemorrhage. Electronically authenticated by: DENISE CAPONESurinder Date: 01/19/2024 17:14 ECG Data Attestation: I personally reviewed and interpreted this ECG as follows: (EKG #1. EKG interpretation. Sinus arrhythmia at 58 beats a minute. PVC noted. Low voltage is noted, QTc of 405. EKG will be repeated.) Interpretation: EKG #2. Normal sinus rhythm at 63 beats a minute. Normal axis deviation. No acute ST elevation, no acute ectopy. QTc of 361, RR intervals are equal. Arrhythmia is not noted on second EKG like it was in the first EKG. Discharge Plan Discharge Chief Complaint: Fall Clinical Impression: Cough, Contusion of multiple sites, Fall, Ringworm Patient Disposition: Home, Self-Care Time of Disposition Decision: 18:19 Condition: Good Prescriptions / Home Meds: New methocarbamol 750 mg tablet 750 mg PO TID PRN (Reason: pain) Qty: 20 0RF Capmist DM 60-15-400 mg tablet 1 tab PO Q6H PRN (Reason: cough) Qty: 20 0RF ketoconazole 2 % cream 1 applic topical BID Qty: 30 0RF No Action prednisone 20 mg tablet 60 mg PO DAILY 5 Days Qty: 15 0RF doxycycline monohydrate 100 mg capsule 100 mg PO BID 7 Days Qty: 14 0RF amoxicillin-pot clavulanate 875-125 mg tablet 1 tab PO Q12H Qty: 14 0RF albuterol sulfate 90 mcg/actuation HFA aerosol inhaler 2 inh inhalation Q4H PRN (Reason: shortness of breath or wheezing) Qty: 6.7 0RF clopidogrel 75 mg tablet 75 mg PO DAILY Instructions: Fall Prevention (ED), Acute Cough (ED) Additional Instructions: Call Dr. Brandt's office tomorrow for appointment Stand Alone Forms: Portal Instructions Referrals: Trent Brandt MD [Primary Care Provider] - 1 week Discharge Date/Time: 01/19/24 18:40
[2024-01-19 15:44] LABS: Basophils Absolute Auto 0.1 10^3/uL (0.0-0.1); Basophils Percent Auto 0.8 % (0.2-2.0); Eosinophils Absolute Auto 0.2 10^3/uL (0.0-0.7); Eosinophils Percent Auto 2.2 % (0.9-7.0); Immature Granulocytes Abs Auto 0.03 10^3/uL (0.00-0.03); Immature Granulocytes Pct Auto 0.3 % (0.0-0.5); Lymphocytes Absolute Auto 2.1 10^3/uL (1.2-3.8); Lymphocytes Percent Auto 20.6 % (20.5-60.0); Mean Corpuscular HGB Conc 32.5 g/dL (29.9-35.2); Mean Corpuscular Hemoglobin 30.3 pg (25.9-34.0); Mean Corpuscular Volume 93.2 fL (80.0-94.0); Mean Platelet Volume 10.5 fL (9.5-13.5); Monocytes Absolute Auto 0.8 10^3/uL (0.3-0.8); Monocytes Percent Auto 7.6 % (1.7-12.0); Neutrophils Absolute Auto 7.1 10^3/uL (1.4-6.5); Neutrophils Percent Auto 68.5 % (43.0-75.0); Platelet Count 306 10^3/uL (150-450); Red Blood Count 4.29 10^6/uL (4.70-6.10); Red Cell Distribution Width 16.4 % (11.0-15.0); White Blood Count 10.4 10^3/uL (4.0-11.0)
[2024-01-19] MEDS: ORPHENADRINE 60 MG/ 2 ML VIAL IM (15:47)
[2024-01-19] MEDS: HYDROCODONE BIT/HOMATROP 5 MG/1.5 MG TABLET 1 TAB PO (15:47)
--- NOTE | 2024-01-19 15:58 | ECG_ITS ---
The [facility] Test Date: 2024-01-19 Pat Name: VLADISLAV SEPULVEDA Department: Room: - Gender: Male Estate Attorney: : 1955 Requested By: MERCY AMBRIZ Order Number: [id number] Reading MD: MERCY AMBRIZ Measurements Intervals [place] Rate: 58 P: -30 MA: 144 QRS: -18 QRSD: 92 T: -30 QT: 408 QTc: 405 Interpretive Statements 1100 Sinus rhythm 1470 with occasional supraventricular premature complexes 1570 with occasional ventricular premature complexes [id number] Cannot rule out inferior myocardial infarction with posterior extension, probably old 9150 abnormal ECG Compared to ECG 11/07/2023 20:40:45 Ventricular premature complex(es) now present Myocardial infarct finding still present Electronically Signed On 01-21-2024 8:34:35 EST by MERCY AMBRIZ
[2024-01-19 16:00] VITALS: PULSE 71; RESP 16
[2024-01-19 16:03] LABS: Alanine Aminotransferase 27 U/L (16-63); Albumin Globulin Ratio 0.8; Albumin Level 3.5 g/dL (3.4-5.0); Alkaline Phosphatase 94 U/L (46-116); Anion Gap 14.3; Aspartate Amino Transferase 21 U/L (15-37); Bilirubin Total 0.8 mg/dL (0.2-1.0); Calcium 10.2 mg/dL (8.5-10.1); Carbon Dioxide 27.5 mmol/L (21.0-32.0); Chloride 104 mmol/L (98-107); Estimated GFR (African America >60 (>=60); Estimated GFR (Non-African Ame 53 (>=60); Globulin 4.2 g/dL; Glucose 217 mg/dL (74-106); Potassium 3.8 mmol/L (3.5-5.1); Sodium 142 mmol/L (136-145); Total Protein 7.7 g/dL (6.4-8.2)
--- NOTE | 2024-01-19 16:03 | ECG_ITS ---
The [facility] Test Date: 2024-01-19 Pat Name: VLADISLAV SEPULVEDA Department: Room: - Gender: Male Supervisor [employer]: : 1955 Requested By: [id number] Order Number: [id number] Reading MD: MERCY AMBRIZ Measurements Intervals [place] Rate: 63 P: 70 MD: 176 QRS: -17 QRSD: 94 T: 270 QT: 354 QTc: 361 Interpretive Statements 1100 Sinus rhythm 1470 with occasional supraventricular premature complexes 15299 Possible inferior myocardial infarction with posterior extension, age undetermined 9150 abnormal ECG Compared to ECG 01/19/2024 15:31:26 Ventricular premature complex(es) no longer present Myocardial infarct finding still present Electronically Signed On 01-21-2024 8:34:59 EST by MERCY AMBRIZ
[2024-01-19 16:05] LABS: Troponin I High Sensitivity 225.2 pg/mL (4.0-76.1)
--- NOTE | 2024-01-19 16:40 | CT_ITS ---
The [address] [address] Patient Name: VLADISLAV SEPULVEDA MRN: [id number] date: 1955 Sex: M Assigned Patient Location: ER Current Patient Location: ER Accession/Order Number: [id number] Exam Date: 01/19/2024 16:28 Report Date: 01/19/2024 17:14 At the request of: ANA GARCIA Procedure: CT cervical spine wo con CT head/brain wo con, CT cervical spine wo con, 01/19/2024 4:28 PM EST INDICATION: Fall COMPARISON: There is no appropriate prior study for comparison. TECHNIQUE: Axial images of 3 mm are obtained from the base of the skull to vertex completed with Axial images of 2 mm are obtained from base of skull to T2 without contrast. Dose reduction techniques were achieved by using automated exposure control and/or adjustment of mA and/or kV according to patient size and/or use of iterative reconstruction technique. FINDINGS: The cerebral and cerebellar sulci as well as ventricular system are appropriate for age. There is no intracranial mass, mass effect, midline shift, intra or extra-axial fluid collection. No acute territorial infarction or hemorrhage is noted. The visualized portions of orbits, mastoid air cells as well as paranasal sinuses are unremarkable. There is no suspicious osteolytic or osteoblastic lesion. No acute fracture or dislocation is noted. Multilevel degenerative changes of cervical spine are noted. Frontal thickening measuring 1.1 x 2.4 cm (AP, transverse) may be due to prior subgaleal hemorrhage. CT/CT cervical spine wo con IMPRESSION: No acute intracranial process is identified. No acute fracture. Frontal thickening likely due to prior subgaleal hemorrhage. Electronically authenticated by: DENISE MENSAH Date: 01/19/2024 17:14
--- NOTE | 2024-01-19 16:40 | CT_ITS ---
The [address] [address] Patient Name: VLADISLAV SEPULVEDA MRN: [id number] date: 1955 Sex: M Assigned Patient Location: ER Current Patient Location: ER Accession/Order Number: [id number] Exam Date: 01/19/2024 16:28 Report Date: 01/19/2024 17:14 At the request of: ANA GARCIA Procedure: CT head/brain wo con CT head/brain wo con, CT cervical spine wo con, 01/19/2024 4:28 PM EST INDICATION: Fall COMPARISON: There is no appropriate prior study for comparison. TECHNIQUE: Axial images of 3 mm are obtained from the base of the skull to vertex completed with Axial images of 2 mm are obtained from base of skull to T2 without contrast. Dose reduction techniques were achieved by using automated exposure control and/or adjustment of mA and/or kV according to patient size and/or use of iterative reconstruction technique. FINDINGS: The cerebral and cerebellar sulci as well as ventricular system are appropriate for age. There is no intracranial mass, mass effect, midline shift, intra or extra-axial fluid collection. No acute territorial infarction or hemorrhage is noted. The visualized portions of orbits, mastoid air cells as well as paranasal sinuses are unremarkable. There is no suspicious osteolytic or osteoblastic lesion. No acute fracture or dislocation is noted. Multilevel degenerative changes of cervical spine are noted. Frontal thickening measuring 1.1 x 2.4 cm (AP, transverse) may be due to prior subgaleal hemorrhage. CT/CT head/brain wo con IMPRESSION: No acute intracranial process is identified. No acute fracture. Frontal thickening likely due to prior subgaleal hemorrhage. Electronically authenticated by: DENISE MENSAH Date: 01/19/2024 17:14
[2024-01-19 18:30] VITALS: BP 150/93; PULSE 67; RESP 16; O2SAT 96
== END 2024-01-19 18:40 | disposition home or self-care (01) ==
PROVIDERS: Physician Assistant; Emergency Provider Emergency Medicine; PCP Family Medicine
DX: T14.8XXA Other injury of unspecified body region, initial encounter (principal); B35.9 Dermatophytosis, unspecified; R05.9 Cough, unspecified; V87.8XXA Person injured in other specified noncollision transport accidents involving motor vehicle (traffic), initial encounter; R79.89 Other specified abnormal findings of blood chemistry; F17.210 Nicotine dependence, cigarettes, uncomplicated; J44.9 Chronic obstructive pulmonary disease, unspecified; Z87.01 Personal history of pneumonia (recurrent); Z79.82 Long term (current) use of aspirin; Z79.02 Long term (current) use of antithrombotics/antiplatelets; Z79.899 Other long term (current) drug therapy
CPT/HCPCS: 36415; 70450; 71046; 72125; 73030; 73130; 73502; 80053; 83880; 84484; 85025; 93005; 96372; 99285

== ENCOUNTER 2025-11-10 12:10 | Emergency (ER) | payer OTHER, SELFPAY ==
[2025-11-10 12:17] VITALS: BP 202/97; PULSE 58; TEMP 36.7; O2SAT 97; BMI 31.2
[2025-11-10 12:21] VITALS: BP 202/97
--- NOTE | 2025-11-10 12:35 | CT_ITS ---
The [address] [address] Patient Name: VLADISLAV SEPULVEDA MRN: [id number] date: 1955 Sex: M Assigned Patient Location: ED.MAIN Current Patient Location: ED.MAIN Accession/Order Number: [id number] Exam Date: 11/10/2025 12:52 Report Date: 11/10/2025 13:12 At the request of: ISSA PAGE MD Procedure: CT head/brain wo con CT BRAIN WITHOUT CONTRAST: CLINICAL HISTORY: Intermittent headache for 3 months COMPARISON: CT brain 01/19/2024 TECHNIQUE: Contiguous axial unenhanced images were obtained through the brain. This CT exam was performed using one or more following dose reduction techniques: Automated exposure control, adjustment of the mA and/or kV according to patient size, or use of iterative reconstruction technique. FINDINGS: There is no evidence of midline shift, intra or extra-axial fluid collection, hemorrhage or CT evidence of stroke. Cortical atrophy with chronic microvascular ischemic changes. Stable hypodensity involving the right internal capsular region suspicious for remote infarct. Posterior fossa appears unremarkable. Visualized intraorbital contents demonstrate no acute findings. Visualized paranasal sinuses are clear. The surrounding soft tissues are normal. CT/CT head/brain wo con IMPRESSION: NO ACUTE INTRACRANIAL ABNORMALITY. Impression dictated by: Vladislav Hadley Jr., D.O. 11/10/2025 1:12 PM Dictation Location: [place] [address] Electronically authenticated by: [id number] Y Date: 11/10/2025 13:12
--- NOTE | 2025-11-10 12:35 | XR_ITS ---
The [address] [address] Patient Name: VLADISLAV SEPULVEDA MRN: [id number] date: 1955 Sex: M Assigned Patient Location: ED.MAIN Current Patient Location: ED.MAIN Accession/Order Number: [id number] Exam Date: 11/10/2025 12:52 Report Date: 11/10/2025 13:10 At the request of: ISSA PAGE MD Procedure: XR chest 1V Single view chest: CLINICAL HISTORY: Hypertension COMPARISON: Chest 01/19/2024 FINDINGS: The heart is normal in size. The lungs are clear. Evidence old granulomatous disease. The pulmonary vasculature is normal. Mediastinum and hilar regions are unremarkable. No pleural effusions are seen. Visualized bones are intact. XR/XR chest 1V IMPRESSION: NO ACUTE PROCESS. Impression dictated by: Vladislav Hadley Jr., D.O. 11/10/2025 1:10 PM Dictation Location: [facility] Electronically authenticated by: [id number] Y Date: 11/10/2025 13:10
--- NOTE | 2025-11-10 12:35 | ECG_ITS ---
The [facility] Test Date: 2025-11-10 Pat Name: VLADISLAV SEPULVEDA Department: Room: - Gender: Male Unix Systems Administrator: : 1955 Requested By: 1030 Order Number: [id number] Reading MD: JOEY HIGGINBOTHAM M.D. Measurements Intervals [place] Rate: 51 P: 19 MA: 186 QRS: 22 QRSD: 96 T: 270 QT: 464 QTc: 441 Interpretive Statements 1100 Sinus rhythm 1102 Sinus arrhythmia 4068 Nonspecific Twave abnormality 9130 borderline ECG Compared to ECG 01/19/2024 15:51:36 Myocardial infarct finding no longer present Electronically Signed On 11-10-2025 16:00:07 EST by JOEY HIGGINBOTHAM M.D.
--- NOTE | 2025-11-10 12:35 | ED.GENADUL1 ---
HPI HPI - General Adult General Chief complaint: Headache Stated complaint: HEADACHE Time Seen by Provider: 11/10/25 12:12 Source: patient Mode of arrival: walk-in History of Present Illness HPI narrative: 70-year-old male presented to the emergency department for an intermittent headache. He has been having this for 3 to 4 months and is always on the left side of his head. No trauma fever or stiff neck. He feels that he gets a headache after he takes his medications, not any medication specifically. No localized weakness cough or congestion or fever. Related Data Home Medications ?Medication ?Instructions ?Recorded ?Confirmed clopidogrel 75 mg tablet 75 mg PO DAILY 01/19/24 01/19/24 Previous Rx's ?Medication ?Instructions ?Recorded albuterol sulfate 90 mcg/actuation 2 inh inhalation Q4H PRN shortness 11/07/23 aerosol inhaler of breath or wheezing #6.7 grams amoxicillin 875 mg-potassium 1 tab PO Q12H #14 tabs 11/07/23 clavulanate 125 mg tablet doxycycline monohydrate 100 mg 100 mg PO BID 7 days #14 caps 11/07/23 capsule prednisone 20 mg tablet 60 mg (3 x 20 mg) PO DAILY 5 days 11/07/23 #15 tabs ketoconazole 2 % topical cream 1 applic topical BID #30 grams 01/19/24 methocarbamol 750 mg tablet 750 mg PO TID PRN pain #20 tabs 01/19/24 pseudoephedrine 60 mg-DM 15 1 tab PO Q6H PRN cough #20 tabs 01/19/24 mg-guaifenesin 400 mg tablet (Capmist DM) qdmmlbfnmq-zaskoicwlhqna-rdzahxcp 1 cap PO Q6H PRN pain 5 days #20 11/10/25 50 mg-300 mg-40 mg capsule caps (Fioricet) Allergies Allergy/AdvReac Type Severity Reaction Status Date / Time naproxen (From Naprosyn) Allergy Intermediate Verified 11/07/23 19:32 Review of Systems ROS Narrative A ten point review of systems is negative except as noted above. PFSH PFSH Social History Smoking status: Heavy tobacco smoker Little interest or pleasure in doing things: not at all Feeling down, depressed, or hopeless: not at all Exam Narrative Exam Narrative: Nurses note and vital signs reviewed General:The patient appears well and in no apparent distress.Patient is resting comfortably on cart. Skin:Warm, dry, no pallor noted.There is no rash noted. Head:Normocephalic, atraumatic Eye: Normal conjunctiva, no drainage Ears, Nose, Mouth, and Throat: oral mucosa is moist. Nares patent. Cardiovascular:Regular Rate and Rhythm Respiratory:Patient is in no distress, no accessory muscle use, lungs are clear to auscultation, no wheezing, rales or rhonchi Back:non-tender GI: Soft and nontender Musculoskeletal: The patient has no evidence of calf tenderness, no pitting edema, symmetrical pulses noted bilaterally Neurological:A&O x4, normal speech; upper and lower extremity strength intact Psychiatric:Cooperative Constitutional Vital Signs, click to edit/add: Last Vital Signs Temp 98.0 F 11/10/25 12:17 Pulse 47 L 11/10/25 12:41 Resp 18 11/10/25 12:41 BP 173/90 H 11/10/25 12:41 Pulse Ox 97 11/10/25 12:17 O2 Del Method Room Air 11/10/25 12:17 Course Vital Signs Vital signs: Vital Signs Temperature 98.0 F 11/10/25 12:17 Pulse Rate 58 L 11/10/25 12:17 Respiratory Rate 18 11/10/25 12:17 Blood Pressure 202/97 H 11/10/25 12:17 Pulse Oximetry 97 11/10/25 12:17 Oxygen Delivery Method Room Air 11/10/25 12:17 Temperature 98.0 F 11/10/25 12:17 Pulse Rate 47 L 11/10/25 12:41 Respiratory Rate 18 11/10/25 12:41 Blood Pressure 173/90 H 11/10/25 12:41 Pulse Oximetry 97 11/10/25 12:17 Oxygen Delivery Method Room Air 11/10/25 12:17 Medical Decision Making [facility] Narrative Medical decision making narrative: His workup including CT brain is negative. The patient believes that the headaches are being caused by his medications. He has already spoken to the [place] physician about it and was advised following up with them. There is no findings of an acute nature on his testing today and he was prescribed Fioricet. Treatment diagnosis and follow-up were discussed with the patient. Differential Diagnosis Differential Diagnosis: Nonspecific headache, medication side effect, sinus infection Lab Data Lab results reviewed: Yes I reviewed the patient's lab results Labs: Lab Results 11/10/25 Range/Units 12:45 WBC 11.0 (4.0-11.0) 10^3/uL RBC 4.28 L (4.70-6.10) 10^6/uL Hgb 13.6 L (14.0-18.0) g/dL Hct 39.9 L (42.0-54.0) % MCV 93.2 (80.0-94.0) fL MCH 31.8 (25.9-34.0) pg MCHC 34.1 (29.9-35.2) g/dL RDW 15.2 H (11.0-15.0) % Plt Count 304 (150-450) 10^3/uL MPV 10.8 (9.5-13.5) fL Neut % (Auto) 63.6 (43.0-75.0) % Lymph % (Auto) 25.0 (20.5-60.0) % [place] % (Auto) 8.0 (1.7-12.0) % Eos % (Auto) 2.4 (0.9-7.0) % Baso % (Auto) 0.6 (0.2-2.0) % Neut # (Auto) 7.0 H (1.4-6.5) 10^3/uL Lymph # (Auto) 2.8 (1.2-3.8) 10^3/uL [place] # (Auto) 0.9 H (0.3-0.8) 10^3/uL Eos # (Auto) 0.3 (0.0-0.7) 10^3/uL Baso # (Auto) 0.1 (0.0-0.1) 10^3/uL Abs Immat Gran (auto) 0.04 H (0.00-0.03) 10^3/uL Imm/Tot Granulo (auto) 0.4 (0.0-0.5) % Sodium 143 (136-145) mmol/L Potassium 4.1 (3.5-5.1) mmol/L Chloride 106 (98-107) mmol/L Carbon Dioxide 27.8 (21.0-32.0) mmol/L Anion Gap 13.3 BUN 16.0 (7.0-18.0) mg/dL Creatinine 1.08 (0.70-1.30) mg/dL Est GFR ( Amer) >60 (>=60 mL/min/1.73m^2) Est GFR (Non-Af Amer) >60 (>=60 mL/min/1.73m^2) BUN/Creatinine Ratio 14.8 Glucose 172 H (74-106) mg/dL Calcium 9.4 (8.5-10.1) mg/dL Imaging Data CT scan - head: Radiologist's impression: ITS Impressions Chest X-Ray 11/10/25 12:35 IMPRESSION: NO ACUTE PROCESS. Impression dictated by: Yousif Hadley Jr., D.O. 11/10/2025 1:10 PM Dictation Location: [employer] Electronically authenticated by: [id number] Y Date: 11/10/2025 13:[address] 11/10/25 12:35 IMPRESSION: NO ACUTE INTRACRANIAL ABNORMALITY. Impression dictated by: Yousif Hadley Jr., D.O. 11/10/2025 1:12 PM Dictation Location: [facility] Electronically authenticated by: [id number] Y Date: 11/10/2025 13:12 Discharge Plan Discharge Chief Complaint: Headache Clinical Impression: Headache Patient Disposition: Home, Self-Care Time of Disposition Decision: 13:35 Condition: Good Mode of Transportation: Private Vehicle Prescriptions / Home Meds: New ecxfmfqpvs-vxxwrwpxgzcsc-dyrq [Fioricet] 50-300-40 mg capsule 1 cap PO Q6H PRN (Reason: pain) 5 Days Qty: 20 0RF No Action prednisone 20 mg tablet 60 mg PO DAILY 5 Days Qty: 15 0RF doxycycline monohydrate 100 mg capsule 100 mg PO BID 7 Days Qty: 14 0RF amoxicillin-pot clavulanate 875-125 mg tablet 1 tab PO Q12H Qty: 14 0RF albuterol sulfate 90 mcg/actuation HFA aerosol inhaler 2 inh inhalation Q4H PRN (Reason: shortness of breath or wheezing) Qty: 6.7 0RF clopidogrel 75 mg tablet 75 mg PO DAILY methocarbamol 750 mg tablet 750 mg PO TID PRN (Reason: pain) Qty: 20 0RF Capmist DM 60-15-400 mg tablet 1 tab PO Q6H PRN (Reason: cough) Qty: 20 0RF ketoconazole 2 % cream 1 applic topical BID Qty: 30 0RF Print Language: Tajik Instructions: General Headache (ED) Referrals: Trent Brandt MD [Primary Care Provider, Family Practice] - 1 week
[2025-11-10 12:39] VITALS: PULSE 58
[2025-11-10 12:40] VITALS: PULSE 45
[2025-11-10 12:41] VITALS: BP 173/90; PULSE 47
--- OUTSIDE RECORDS SUMMARY | 2025-11-10 12:54 | XMS_ITS | Patient Health Record ---
Author Organization The [facility] [place] Address [address] [place] [address] Care Team Providers Care Cereal Popper Name Role Phone Juan Brandt Primary Care Provider Allergies Allergen (clinical drug ingredient) Drug/Non Drug Allergy documented on EMR Reaction Allergy Type Onset Date Status naproxen Naprosyn chest pain Drug Allergy Active Results Component Value Reference Range Notes ECG 12 lead (Not yet reviewe d by provider) Interpretation: Performing Lab: Notes/Report: Source Facility: [place] [address] Electrocardiograph Report Draft Patient: YOUSIF SEPULVEDA MR#: [id number] : 1955 Acct:[id number] Age/Sex: 70 / M ADM Date: Loc: ER Attending Dr: Ordering Physician: Konstantin Peck M.D. 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1955 Requested By: 1030 Order Number: [id number] Reading MD: Measurements Intervals [place] Rate: 51 P: 19 MS: 186 QRS: 22 QRSD: 96 T: 270 QT: 464 QTc: 441 Interpretive Statements 1100 Sinus rhythm 1102 Sinus arrhythmia 4068 Nonspecific Twave abnormality 9130 borderline ECG No previous ECG available for comparison Dictated By: Codie Reynolds Signed By: DD/ 1239 TD/TT: Mon[place] Carver: Reason For Referral No Information Medications Medication SIG (Take, Route, Frequency, Duration) Notes Start Date End Date Status Blood Glucose Meter -- Use meter to chec k glucose once daily DX E11.9; Duration: 365 days 11/26/2023UnknownTest Strips -1 strip via meter 4 times daily DX E11.9; Duration: 90 days11/26/2023UnknownAspirin 81 81 MG1 tablet Orally Once a day; Duration: 30 day(s)09/15/2023UnknownPlavix 75 MG1 tablet Orally Once a day; Duration: 30 daysUnknownLisinopril 10 MG1 tablet Orally Once a day; Duration: 30 days09/15/2023ctiveGlimepiride 2 mgTAKE ONE TABLET BY MOUTH ONCE DAILY; Duration: 30 daysUnknownVentolin HFA 108 (90 Base) MCG/ACTINHALE 2 PUFF USING INHALER EVERY FOUR HOURS NEEDED; Duration: 17 daysUnknownmetFORMIN HCl 500 MG 1 tablet with a meal Orally Twice a day; Duration: 30 day(s)11/29/2023Unknown Crestor 40 MG1 tablet Orally Once a day; Duration: 30 day(s)09/15/2023ctive Pioglitazone HCl 15 mgTAKE ONE TABLET BY MOUTH ONCE DAILY; Duration: 30 days UnknownIsosorbide Mononitrate ER 30 MG1 tablet Orally Once a day; Duration: 30 daysActiveMetoprolol Tartrate 25 MG1 tablet with food Orally Twice a dayUnknown Lancets 33G -1 lancet to check glucose once daily DX E11.9; Duration: 90 days 11/26/2023UnknownKetoconazole 2 %1 application Externally Twice a day; Duration: Unknown Social History Tobacco Use: Social History Observation Description Date Details (start date - stop date) Current Smoker 11/22/1964 - NA Tobacco Use/Smoking Question Answer Notes Patient is a current smoker When did you start smoking?11/22/1964How often do you smoke cigarettes?every day How many cigarettes a day do you smoke?21-30Additional Findings: Tobacco User Heavy cigarette smoker (20-39 cigs/day)Alcohol Screen (Audit-C) Question Answer Notes Did you have a drink containing alcohol in the p ast year? No Cvnxmi5UrbjgiooacenpfZqgiwzpg Problems Problem Type SNOMED Code ICD Code Onset Dates Problem Status W/U Status Risk Notes Problem Type 2 diabetes mellitus with other specified complication (E11.69)Active confirmedProblemShortness of breath (960863027)Shortness of breath (R06.02) ActiveconfirmedProblemLipoma (05515943)Lipoma (D17.9)ActiveconfirmedProblemCough (09602114)Cough (R05.9)Activeconfirmed Plan Of Treatment Pending Test Test Name Order Date ECG 12 lead 11/10/2025 Insurance Providers Payer Name Payer Address Payer Phone Subscriber Number Group Number Insured Name Patient Relationship to Insured Coverage Start Date Coverage End Date [employer] [place] [employer] [address] [place] [address] [id number] Alfreda Sepulveda - patient is the [id number] 2021 Medical (General) History Medical History History ICD Code Arthralgia M25.50 BPH with obstruction/lower urinary tract symptoms N40.1 COPD (chronic obstructive pulmonary dise ase) J44.9 COVID-19 U07.1 Coronary artery disease I25.10 Essential Hypertension I10 Gross hematuria R31.0 Hyperlipidemia E78.5 Lumbar disc disease M51.9 Lumbar radiculopathy M54.16 Heart failure I50.9 Restless leg syndrome G25.81 Surgical History Surgery Date(Month/Year) Cystoscopy-Dr. Chavez 01/08/2022
--- OUTSIDE RECORDS SUMMARY | 2025-11-10 12:54 | XMS_ITS | Clinical Summary ---
Author Organization [facility] Address [address] [place] [address] Phone Care Team Providers Care Laboratory Inspector Name Role Phone Trent Brandt MD Primary Care Provider [phone] Allergies Active AllergyReactionsCriticalityNoted WdkmLxrksjpmOcktoymjHljxtMogd19/12/2024 Chest pains Medications MedicationSigDispense QuantityRefillsLast FilledStart DateEnd DateStatus metoprolol tartrate (Lopressor) 25 mg tablet Take 1 tablet (25 mg) by mouth once daily.Active albuterol 90 mcg/actuation inhaler INHALE 2 PUFFS BY MOUTH EVERY 4 HOURS NEEDED FOR SHORTNESS OF BREATH OR WHEEZINGActive rosuvastatin (Crestor) 40 mg tablet Take 1 tablet (40 mg) by mouth once daily.Active pioglitazone (Actos) 15 mg tablet Take 1 tablet (15 mg) by mouth once daily.Active metFORMIN (Glucophage) 500 mg tablet TAKE ONE TABLET BY MOUTH TWICE A DAY WITH MEALActive lisinopril 20 mg tablet Indications:Primary hypertensionTake 1 tablet (20 mg) by mouth once daily. 90 tablet ctive levothyroxine (Synthroid, Levoxyl) 150 mcg tablet Take 1 tablet (150 mcg) by mouth early in the morning.. Take on an empty stomach at the same time each day, either 30 to 60 minutes prior to breakfastActive clopidogrel (Plavix) 75 mg tablet Take 1 tablet (75 mg) by mouth once daily.Active Active Problems ProblemNoted DateDiagnosed DateEncounter to discuss test vwaydps0610/27/2024 Primary ioowehulvqga10/25/2024Mixed evwkajnknwzeux02/25/2024iabetes mellitus type II, non insulin idcloypaa53/25/2024AD (coronary artery disease)09/15/2024 Coronary arteriosclerosis after percutaneous transluminal coronary angioplasty (PTCA)09/15/20242916Rcoecc96/25/2024BMI 30.0-30.9,adult09/15/2024hronic atrial xtabodqsyaui54/25/2024Shortness of rrkpiw1009/15/2024Medication course changed 09/15/2024 Encounters DateTypeDepartmentCare AslrQxycxhxaztz65/07/2025Telephone at [facility] [address] [phone] Ana Denton LPN 08/27/2025 2:15 PM EDTOffice Visit at [facility] [address] [phone] Marcela Medina MD Coronary artery disease involving [place] heart, unspecified vessel or lesion type, unspecified whether angina present; Encounter to discuss test results; Primary hypertension; Mixed hyperlipidemia; Diabetes mellitus type II, non insulin dependent (Multi); BMI 30.0-30.9,adult; Smoker Discharge Disposition: Home08/27/20256930Gintmr54/30/2025Telephone at [facility] [address] [phone] Marcela Medina MD 08/13/2025Scanned Document [facility] [address] [place] [phone] Scanning, Generic Provider from Last 3 Months Immunizations ImmunizationAdministration DatesNext DueInfluenza, Daqconhnnws96/09/2010, 09/01/2007Zoster vaccine, recombinant, adult (SHINGRIX)06/30/2024 Social History Tobacco UseTypesPacks/DayYears UsedDateSmoking Tobacco: Every DayCigarettes Smokeless Tobacco: Never Tobacco Cessation:Ready to Q uit: Not Asked; Counseling Given: Yes Alcohol UseStandard Drinks/WeekCommentsNever0 (1 standard drink = 0.6 oz pure alcohol)Sex and Gender InformationValueDate RecordedSex Assigned at BirthNot on fileLegal YbeFade64/25/2022 8:26 PM ESTGender IdentityNot on fileSexual OrientationNot on file Last Filed Vital Signs Vital SignReadingTime TakenCommentsBlood Wneslhry649/9210/04/2025 2:38 PM EDT Xpquy051608/27/2025 2:38 PM EDTTemperature--Respiratory Rate--Oxygen Saturation-- Inhaled Oxygen Concentration--Jnnciz075 kg (222 lb)08/27/2025 2:15 PM EDTHeight 182.9 cm (6')08/27/2025 2:15 PM EDTBody Mass Index30.111 2:15 PM EDT Plan of Treatment DateTypeDepartmentCare Team (Latest Contact Info)Mllubpdrrvu82/06/2026 10:00 AM EDTOffice Visit at [facility] [address] [facility] [address] [place] [address] Marcela Medina MD [address] [facility] [address] [place], [place] [phone] Health MaintenanceDue DateLast DoneCommentsCT Oewiqjzfqgec1955Colonoscopy 5Colorectal Cancer Rpbegpjta1955Diabetes: Hemoglobin A1C 1955Diabetes: Urine Protein Fgiwqfgft1955FIT-DNA (Cologuard) 1955FIT1955Lipid Panel1955 4274Mzsponlaklkvb1955TSH Level 1955early Adult Ffcqttjz1955MMR Vaccines (1 of 1 - Standard series) 1956Diabetes: Retinopathy Vrmdwouma35/29/1965Hepatitis C Screening 1973Pneumococcal Vaccine (1 of 2 - PCV)1974DTaP/Tdap/Td Vaccines (1 - Tdap)1977RSV High Risk: (Elderly (60+) or Population) (1 - Risk 50-74 years 1-dose series)2005Zoster Vaccines (2 of 2)/07/2024 Influenza Vaccine (#1)/07/2010, 09/01/2007COVID-19 Vaccine ( season)2025bdominal Aortic Aneurysm (AAA) ScreeningCompleted 2025HIB VaccinesAged OutNo longer eligible based on patient's age to complete this topicHPV VaccinesAged OutNo longer eligible based on patient's age to complete this topicHepatitis A VaccinesAged OutNo longer eligible based on patient's age to complete this topicHepatitis B VaccinesAged OutNo longer eligible based on patient's age to complete this topicIPV VaccinesAged OutNo longer eligible based on patient's age to complete this topicMeningococcal VaccineAged OutNo longer eligible based on patient's age to complete this topic Rotavirus VaccinesAged OutNo longer eligible based on patient's age to complete this topic Procedures Procedure NamePriorityDate/TimeAssociated DiagnosisCommentsECG 12-LEADRoutine 08/27/2025 3:04 PM EDT Coronary artery disease involving [place] heart, unspecified vessel or lesion type, unspecified whether angina present Encounter to discuss test results Primary hypertension Mixed hyperlipidemia Diabetes mellitus type II, non insulin dependent (Multi) BMI 30.0-30.9,adult Smoker [facility] ABDOMINAL AORTA ANEURYSM AAA RBWMJSEKUDxfcayj96/29/2025 1:22 PM EDT Coronary artery disease involving [place] heart, unspecified vessel or lesion type, unspecified whether angina present Shortness of breath Smoker Screening for AAA (abdominal aortic aneurysm) from Last 3 Months or Most Recently Relevant to Health Maintenance Results * ECG 12 Lead (08/27/2025 3:04 PM EDT)Specimen (Source)Anatomical Location / LateralityCollection Method / VolumeCollection TimeReceived Time Narrative Marcela Medina MD - 08/27/2025 3:04 PM EDT Normal sinus rhythm 83 bpm normal intervals incomplete right bundle branch block inferior infarct. ??Compared to the EKG from 09/15/2024, heart rate has increased from 58 bpm to 83 bpm Authorizing ProviderResult TypeResult StatusGeethyasir ANGLIN ORDERABLESFinal Result * Vascular US Abdominal Aorta Aneurysm AAA Screening (2025 1:22 PM EDT) Anatomical RegionLateralityModalityAbdomenEchocardiographySpecimen (Source) Anatomical Location / LateralityCollection Method / VolumeCollection Time Received Time2025 12:55 PM EDT Narrative 03/21/2025 8:09 AM EDT ?[address], Suite [facility], [place] [address] ? Vascular Lab Report [facility] ABDOMINAL AORTA ANEURYSM AAA SCREENING Patient Name: ?YOUSIF SPEULVEDA ?Reading Physician: ??[id number] Yenni Blackwell ?, FACC Study Date: ?2025 ?Ordering Provider: ??[id number] MARCELA MEDINA MRN/PID: ? [id number] ? Fellow: Accession#: ?[id number] ? Technologist: ? Tasia Garza RDCS, ?RVT Date of /Age: 4 1955 / 70 years Technologist 2: Gender: ?M ? Admission Status: ??Outpatient ? Location Performed: [facility] Diagnosis/ICD: Shortness of breath-R06.02; Nicotine uncomplicated-F17.200; AAA ? Screening-Z13.6 Indication: ?PTCA, HTN, Hyperlipidemia, Diabetes, Atrial Fibrillation, ? Marijuana Abuse CPT Codes: ? 72998 Ultrasound, abdominal aorta, real time with image ? documentation, screening study for (AAA) CONCLUSIONS: Aorta/Common Iliac Arteries/IVC: No evidence of abdominal aortic aneurysm. Imaging & Doppler Findings: AORTA ? AP ?Lateral ? PSV Proximal 1.73 cm 26.62 cm 27.0 cm/s ??Mid ?1.52 cm 2.28 cm ??33.0 cm/s Distal ??1.79 cm 2.34 cm ??45.0 cm/s ?? RIGHT ? AP ?Lateral ?PSV CLAUDIA Proximal 1.27 cm 1.71 cm 36.00 cm/s ?LEFT ? AP ?Lateral ?PSV CLAUDIA Proximal 1.72 cm 1.63 cm 20.00 cm/s [id number] Yenni Blackwell MD, [facility] Final Procedure Note Yenni Blackwell MD - 03/21/[address], [address], [place] [address] Vascular Lab Report [facility] ABDOMINAL AORTA ANEURYSM AAA SCREENING Patient Name: YOUSIF Pierre Physician: [id number] Colón MD, FAC Study Date: 2025 Ordering Provider: [id number] ABBI MRN/PID: [id number] Fellow: Technologist: Tasia Mcclendon T Date of /Age: 4 1955 / 70 years Technologist 2: Gender: M Admission Status: Outpatient Location Performed: [facility] Diagnosis/ICD: Shortness of breath-R06.02; Nicotine uncomplicated-F17.200;AAA Screening-Z13.6 Indication: PTCA, HTN, Hyperlipidemia, Diabetes, Atrial Fibrillation, Marijuana Abuse CPT Codes: 78283 Ultrasound, abdominal aorta, real time with image documentation, screening study for (AAA) CONCLUSIONS: Aorta/Common Iliac Arteries/IVC: No evidence of abdominal aorticaneurysm. Imaging & Doppler Findings: AORTA AP Lateral PSV Proximal 1.73 cm 26.62 cm 27.0 cm/s Mid 1.52 cm 2.28 cm 33.0 cm/s Distal 1.79 cm 2.34 cm 45.0 cm/s RIGHT AP Lateral PSV CLAUDIA Proximal 1.27 cm 1.71 cm 36.00 cm/s LEFT AP Lateral PSV CLAUDIA Proximal 1.72 cm 1.63 cm 20.00 cm/s [id number] Yenni Blackwell MD, FACC at8:09:34 AM Final Authorizing ProviderResult TypeResult StatusGeethyasir Medina [facility] [facility]ULAR PROCEDURESFinal Result from Last 3 Months or Most Recently Relevant to Health Maintenance Insurance Care Teams Team MemberRelationshipSpecialtyStart DateEnd Trent Brandt MD [address] [place], [place] [phone] PCP - GeneralFamily Totfbajn61/25/24
--- OUTSIDE RECORDS SUMMARY | 2025-11-10 12:54 | XMS_ITS | Clinical Summary ---
Author Organization [facility] Address [address], [address] [place] [address] Care Team Providers Care Neurosurgical Nurse Name Role Phone Trent Brandt MD Primary Care Provider +- Allergies Active AllergyReactionsCriticalityNoted DateCommentsNaproxenOther (See Comments) 12/09/2021 Moderate Medications MedicationSigDispense QuantityRefillsLast FilledStart DateEnd DateStatus metoprolol tartrate (LOPRESSOR) 25 MG tablet Indications:1/2 tablet dailyTake 25 mg by mouth daily Indications: 1/2 tablet dailyActive aspirin 81 MG EC tablet Take 81 mg by mouth dailyActive lisinopril (PRINIVIL;ZESTRIL) 10 MG tablet Take 10 mg by mouth dailyActive clopidogrel (PLAVIX) 75 MG tablet Take 75 mg by mouth dailyActive rosuvastatin (CRESTOR) 40 MG tablet Take 40 mg by mouth dailyActive fluticasone-vilanterol (BREO ELLIPTA) 100-25 MCG/INH AEPB inhaler Inhale 1 puff into the lungs dailyActive albuterol sulfate HFA (PROAIR HFA) 108 (90 Base) MCG/ACT inhaler Inhale 2 puffs into the lungs every 6 hours as needed for WheezingActive metFORMIN (GLUCOPHAGE) 500 MG tablet Take 500 mg by mouth 2 times daily (with meals)Active pioglitazone (ACTOS) 15 MG tablet Take 15 mg by mouth dailyActive glimepiride (AMARYL) 2 MG tablet Take 2 mg by mouth every morning (before breakfast)Active Nutritional Supplements (GLUCERNA 1.5 JENNIFER PO) Take 237 mLs by mouth 2 times dailyActive Blood Glucose Monitoring Suppl w/Device KIT by Does not apply routeActive tamsulosin (FLOMAX) 0.4 MG capsule Take 0.4 mg by mouth daily12/09/2021ctive Incontinence Supplies (URINARY DRAINAGE BAG) [facility] [place] Indications:Urinary retentionDispense 1 Lang back 1 each 12/23/2021ctive oxybutynin (DITROPAN) 5 MG tablet Take 1 tablet by mouth 2 times daily as needed (bladder spasm) 30 tablet 02/24/2022ctive Active Problems ProblemNoted DateDiagnosed DateBPH with obstruction/lower urinary tract symptoms 02/04/2022 Social History Tobacco UseTypesPacks/DayYears UsedDateSmoking Tobacco: Every DayCigarettes Smokeless Tobacco: NeverSex and Gender InformationValueDate RecordedSex Assigned at BirthNot on fileLegal CzhZhth8912/08/2021 3:18 PM ESTGender IdentityNot on file Sexual OrientationNot on file Last Filed Vital Signs Vital SignReadingTime TakenCommentsBlood Ozumvaqc782/8004 1:16 PM EDT Johkh5684/05/2022 3:30 PM KUOUkkeoejrlta39.7 ??C (98 ??F)02/24/2022 3:30 PM EDT Respiratory Hvwv359302/05/2022 2:15 PM EDTOxygen Gggutqmoul09%02/05/2022 2:15 PM EDTInhaled Oxygen Concentration--Szgjce722.8 kg (231 lb)02/24/2022 3:30 PM EDT Hvntvn902.4 cm (6' 1 )03/05/2022 1:16 PM EDTBody Mass Index30.48002/10/2022 8:56 AM EDT Plan of Treatment Not on file Insurance Advance Directives * Full Code (Latest Code Status on File) Date ActivatedDate InactivatedComments02/05/2022 8:33 AM02/05/2022 4:50 PM Care Teams Team MemberRelationshipSpecialtyStart DateEnd Date Trent Brandt MD [address] [place] [address] PCP - GeneralFamily Medicine12/10/21
[2025-11-10 13:07] LABS: Hematocrit 39.9 % (42.0-54.0); Hemoglobin 13.6 g/dL (14.0-18.0); Immature Granulocytes Abs Auto 0.04 10^3/uL (0.00-0.03); Immature Granulocytes Pct Auto 0.4 % (0.0-0.5); Lymphocytes Absolute Auto 2.8 10^3/uL (1.2-3.8); Mean Corpuscular HGB Conc 34.1 g/dL (29.9-35.2); Mean Corpuscular Hemoglobin 31.8 pg (25.9-34.0); Mean Corpuscular Volume 93.2 fL (80.0-94.0); Platelet Count 304 10^3/uL (150-450); Red Blood Count 4.28 10^6/uL (4.70-6.10); White Blood Count 11.0 10^3/uL (4.0-11.0)
[2025-11-10 13:27] LABS: Anion Gap 13.3; Blood Urea Nitrogen 16.0 mg/dL (7.0-18.0); Calcium 9.4 mg/dL (8.5-10.1); Carbon Dioxide 27.8 mmol/L (21.0-32.0); Chloride 106 mmol/L (98-107); Estimated GFR (African America >60 (>=60 mL/min/1.73m^2); Estimated GFR (Non-African Ame >60 (>=60 mL/min/1.73m^2); Glucose 172 mg/dL (74-106); Potassium 4.1 mmol/L (3.5-5.1); Sodium 143 mmol/L (136-145)
[2025-11-10] MEDS: BUTALB/ACETAMINOPHEN/CAFFEINE 50-325-40MG TABLET 1 TAB PO (13:57)
== END 2025-11-10 14:08 | disposition home or self-care (01) ==
PROVIDERS: Emergency Provider Emergency Medicine; PCP Family Medicine
DX: R51.9 Headache, unspecified (principal); F17.200 Nicotine dependence, unspecified, uncomplicated
CPT/HCPCS: 36415; 70450; 71045; 80048; 85025; 93005; 99284